=== PATIENT | female | born 1990 | race Asian ===

== ENCOUNTER 2021-03-15 12:26 | Inpatient (IN) | payer OTHER ==
[~2021-03-15] VITALS: Ht 167.6 cm; Wt 54.5 kg
[~2021-03-15 12:26] MED LIST: NICOTINE 21MG/24HR 1 EA TRANSDERMAL TD SCH
[2021-03-15 13:07] LABS: HEMATOCRIT 42.5 % (36.0-47.0); HEMOGLOBIN 13.9 g/dl (12.0-15.5); MEAN CORPUSCULAR HEMOGLOBIN 28.5 pg (27.0-33.0); MEAN CORPUSCULAR HGB CONC 32.7 g/dl (32.0-36.5); MEAN CORPUSCULAR VOLUME 87.3 fl (80.0-96.0); PLATELET COUNT, AUTOMATED 277 10^3/uL (150-450); RED BLOOD COUNT 4.87 10^6/uL (4.00-5.40); WHITE BLOOD COUNT 9.4 10^3/uL (4.0-10.0)
[2021-03-15 13:27] LABS: HCG, SERUM QUALITATIVE NEGATIVE (NEGATIVE)
[2021-03-15 13:42] LABS: AMPHETAMINES LEVEL URINE NEGATIVE (NEGATIVE); BARBITURATES URINE NEGATIVE (NEGATIVE); BENZODIAZEPINES URINE NEGATIVE (NEGATIVE); CANNABINOIDS URINE NEGATIVE (NEGATIVE); COCAINE METABOLITE URINE NEGATIVE (NEGATIVE); METHADONE URINE NEGATIVE (NEGATIVE); OPIATES URINE NEGATIVE (NEGATIVE); PHENCYCLIDINE URINE NEGATIVE (NEGATIVE)
[2021-03-15 13:44] LABS: ACETAMINOPHEN LEVEL < 2.0 UG/ML (10.0-30.0); ALBUMIN 3.9 GM/DL (3.2-5.2); ALT/SGPT 15 U/L (12-78); BILIRUBIN,DIRECT 0.2 MG/DL (0.0-0.2); BLOOD UREA NITROGEN 9 MG/DL (7-18); CALCIUM LEVEL 8.7 MG/DL (8.5-10.1); CARBON DIOXIDE LEVEL 24 MEQ/L (21-32); CHLORIDE LEVEL 107 MEQ/L (98-107); CREATININE FOR GFR 0.62 MG/DL (0.55-1.30); ETHYL ALCOHOL (ETHANOL) < 0.003 % (0.000-0.010); GLOMERULAR FILTRATION RATE > 60.0 (>60); GLUCOSE, FASTING 81 MG/DL (70-100); POTASSIUM SERUM 4.4 MEQ/L (3.5-5.1); SALICYLATE LEVEL < 1.7 MG/DL (5.0-30.0); SODIUM LEVEL 141 MEQ/L (136-145); THYROID STIMULATING HORMONE 0.676 uIU/ML (0.358-3.740)
[2021-03-15] MEDS ORDERED: traZODone 50 MG TAB PO PRN ×2 (15:40→16:05)
[2021-03-15] MEDS ORDERED: ACETAMINOPHEN TAB 650MG DOSE (2X325MG) PO PRN ×2 (15:40→16:05)
[2021-03-15] MEDS ORDERED: MAALOX 30 ML SUSP *UDC PO PRN (16:05)
[2021-03-15] MEDS ORDERED: MOM 30ML SUSPENSION UDC PO PRN (16:05)
[2021-03-15 21:12] VITALS: BP 125/81
[2021-03-16 06:36] VITALS: BP 110/71
[2021-03-16] MEDS ORDERED: hydrOXYzine 25 MG TAB PO PRN (13:30)
[2021-03-16] MEDS ORDERED: traZODone 50 MG TAB PO PRN (13:30)
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
[2021-03-16 18:08] VITALS: BP 107/64
--- NOTE | 2021-03-16 19:02 | CR ---
CONSULTATION DATE: 03/16/2021 TIME: 4 P.M. REASON FOR CONSULTATION: Medical evaluation of inpatient psychiatric admission. HISTORY OF PRESENT ILLNESS: Peng is a 30-year-old woman with history of depression who presents to the hospital with major depression with suicidal ideation. PAST MEDICAL HISTORY: No significant past medical history. PAST SURGICAL HISTORY: Breast augmentation. ALLERGIES: NKDA. CURRENT MEDICATIONS: As prescribed during her visit to the inpatient psychiatric unit as follows: 1. Trazodone 50 mg at bedtime as needed. 2. Hydroxyzine 25 mg every six hours as needed for anxiety. 3. Mylanta every four hours as needed for heartburn. SOCIAL HISTORY: The patient is . She is self-employed. She does not use any tobacco, alcohol, or illicit drugs. FAMILY HISTORY: Non-contributory for any acute or chronic illnesses. REVIEW OF SYSTEMS: 12 systems reviewed with the patient and otherwise negative. PHYSICAL EXAMINATION: VITAL SIGNS: Temperature 98.4, pulse 86 and regular, respirations 16, blood pressure 107/64, O2 saturation 97% on room air. GENERAL: The patient is alert and oriented x3 and appears in no acute distress. SKIN: Intact and warm to touch. HEENT: Atraumatic, normocephalic. Pupils are equal, round, reactive to light and accommodation. Extraocular movements are full in all directions. No scleral icterus or pallor. Oropharynx without exudate, erythema, or thrush. NECK: Supple. LUNGS: Sounds present bilaterally without rales, wheezing, or rhonchi. HEART: S1, S2. No murmurs, rubs or gallops. IMAGING DATA: None. LABORATORY DATA: White count 9.4, hemoglobin 13.9, hematocrit 42.5, platelet count 277,000. Sodium 141, potassium 4.4, chloride 107, bicarb 24, anion gap 10, BUN 9, creatinine 0.62, calcium 8.7, total bilirubin 1, direct bilirubin 0.2, AST 13, ALT 15, albumin 3.9. TSH 0.67. Urine hCG was negative. Urine drug tox was negative. Alcohol level was less than 0.03. Acetaminophen was less than 2. Salicylate 1.7. IMPRESSION: 1. Normal adult physical examination. 2. Acute depression with suicidal ideation. RECOMMENDATIONS: The patient is medically appropriate to continue to receive inpatient psychiatric evaluation and treatment. We will sign off at this time as the patient has no active issues, please notify us should any arise.
[2021-03-17 06:48] VITALS: BP 95/65
[2021-03-17] MEDS ORDERED: HYDR-3363 PO (08:21)
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
== END 2021-03-17 10:33 | disposition home or self-care (01) | DRG 885 ==
LOC: M ED 12:26 → M ED INP 17:15 → M PSY 21:11
PROVIDERS: ADMIT Psychiatry & Neurology Psychiatry; ATTEND Psychiatry & Neurology Psychiatry
DX: F32.0 Major depressive disorder, single episode, mild (principal); R45.851 Suicidal ideations; Z63.0 Problems in relationship with spouse or partner; Z60.9 Problem related to social environment, unspecified; Z20.822 Contact with and (suspected) exposure to COVID-19